=== PATIENT | female | born 1985 | race Caucasian/White ===

== ENCOUNTER 2017-03-29 12:35 | Emergency (ER) | payer MEDICAID ==
[~2017-03-29] VITALS: Ht 170.2 cm; Wt 65.8 kg
[~2017-03-29 12:35] MED LIST: AMOXIL250 MG PO; AMOXIL500 MG PO; DARVOCET-N 1001 EACH PO; FLEXERIL10 MG PO; KEFLEX 250MG.250 MG PO; KEFLEX 500MG.500 MG PO; NAPROXEN250 MG PO; TYLENOL W/CODEI1 TAB PO
--- NOTE | 2017-03-29 13:57 | Emergency Room Report ---
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 N Clinical Suspician of Infection? N Mental Status: 1 - Regular (Normal Baseline) Sepsis Risk:Possible Sepsis Risk Have you (or family members/close friends) recently traveled outside the [place]? N If Yes, where/when: Have you had exposure to infectious disease within the past month? N TB? Other? Specify: Comment The patient complains of a 2 day history of a cough productive of green sputum, substernal chest pain with cough, RIGHT earache, chills. She has also been wheezing. No history of asthma. She is a smoker. She works in a [employer]. She has a 4-month-old child. She does not want to spread the illness. ALLERGIES Coded Allergies: No Known Allergies (03/29/17) Home Medications Active Scripts CEPHALEXIN (Keflex 250MG Capsule) 250 MG PO TID #15 Prov: 12/17/07 Naproxen (Naproxen 250MG Tablet) 250 MG PO BID #10 Prov: 12/17/07 Cyclobenzaprine Hcl (Flexeril) 10 MG PO BID 5 Days Prov: 09/13/07 ACETAMINOPHEN WITH CODEINE (Tylenol With Codeine #3 Tablet) 1 TAB PO Q6H PRN 2 Days Prov: 09/13/07 CEPHALEXIN (Keflex 500MG Capsule) 500 MG PO Q8H 7 Days Prov: 07/07/08 Propoxyphene-N W/ Apap (Darvocet-N 100 Tab) 1 TAB PO Q6H PRN #12 Prov: 05/27/09 Amoxicillin Trihydrate (Amoxil 250MG Capsule) 250 MG PO TID #30 Prov: 10/15/07 ACETAMINOPHEN WITH CODEINE (Tylenol With Codeine #3 Tablet) 1 TAB PO Q6H PRN #12 Prov: 10/15/07 History Medical History General CAD? No Angina: No [place]: No Hypertension? No Hyperlipidemia? No COPD? No Asthma? No CVA? No Seizures? No Diabetes? No GB Disease: Yes MRSA? No TB? No Cancer? 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 Respiratory cough, shortness of breath, wheezing Cardiovascular chest pain Physical Exam Vital Signs Vital Signs Date Time Temp Pulse Resp B/P Pulse O2 O2 Flow FiO2 Ox Delivery Rate 03/29 1432 98.6 108 20 135/89 97 03/29 1242 98.4 112 20 154/100 97 General Appearance no apparent distress Eye Exam - bilateral eye normal exam, bilateral eye PERRL, bilateral eye EOMI Ear, Nose, Throat hearing grossly normal, normal ENT inspection, tympanic membranes unremarkable except for questionable minimal effusion RIGHT middle ear Neck normal inspection, non-tender, supple, full range of motion Respiratory Status Yes: trachea midline, chest symmetrical, non tender chest. No: respiratory distress. Lung Sounds bilateral: normal breath sounds, lungs clear. 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 No Results/Orders Current Medication Orders Sig/Angelique Start time Last Medication Dose Route Stop Time Status Admin Albuterol 0 .STK-MED ONE 03/29 1427 DC IH Miscellaneous 0 .STK-MED ONE 03/29 1426 DC XX Albuterol 2 PUFFS ONCE ONE 03/29 1415 DC IH 03/29 1416 Miscellaneous 1 UNIT ONCE ONE 03/29 1415 DC XX 03/29 1416 Albuterol/Ipratropium 3 ML ONCE ONE 03/29 1300 DC INH 03/29 1301 Albuterol/Ipratropium 0 .STK-MED ONE 03/29 1244 DC INH Orders Procedure Date/time Status RT REQUEST ALBUTEROL INHALER 03/29 1410 Active RT REQUEST DUONEB 03/29 1252 Active XRAY/CT/US XRAY/CT/US XRAY chest Comment Chest x-ray interpreted by Shemar Arriaga M.D. No infiltrate, pneumothorax, pleural effusion, or wide mediastinum. Progress - 2:15 PM: The patient feels much better after nebulizer treatment. Departure Departure Disposition DC Home or Self Care(routine) Clinical Impression Primary Impression: Acute bronchitis Qualifiers: Bronchitis organism: unspecified organism Qualified Code: J20.9 - Acute bronchitis, unspecified Secondary Impressions: Otalgia, right ear Condition STABLE Patient Instructions DI for Acute Bronchitis, DI for Otitis Media (Middle Ear Infection)-Child Additional Instructions Off work until Monday04/03/17. Use inhaler 2 puffs every 6 hours as needed for wheezing. Ibuprofen as needed for pain or fever. Additional instructions for ACUTE BRONCHITIS: Use Tylenol or Ibuprofen for pain or fever. Rest and plenty of fluids. Return immediately if you have an uncontrollable fever greater than 102 degrees, severe headache or neck stiffness, difficulty breathing or shortness of breath, persistent vomiting, severe sore throat or inability to swallow. See your physician if not improving in 4-5 days. Prescriptions Current Visit Scripts Benzonatate (Tessalon Perle) 100 MG PO TID #15 SGL Azithromycin (Zithromycin (Z-PILLO) 250MG Tab) 250 MG PO DAILY #6 TAB TAKE TWO (2) TABLETS ON DAY 1, THEN ONE (1) TABLET DAY #2 THRU #5 ED Critical Care Critical Care No at [id number]
--- NOTE | 2017-03-29 13:57 | Emergency Room Report ---
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 N Clinical Suspician of Infection? N Mental Status: 1 - Regular (Normal Baseline) Sepsis Risk:Possible Sepsis Risk Have you (or family members/close friends) recently traveled outside the [place]? N If Yes, where/when: Have you had exposure to infectious disease within the past month? N TB? Other? Specify: Comment The patient complains of a 2 day history of a cough productive of green sputum, substernal chest pain with cough, RIGHT earache, chills. She has also been wheezing. No history of asthma. She is a smoker. 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 She does not want to spread the illness. ALLERGIES Coded Allergies: No Known Allergies (03/29/17) Home Medications Active Scripts CEPHALEXIN (Keflex 250MG Capsule) 250 MG PO TID #15 Prov: 12/17/07 Naproxen (Naproxen 250MG Tablet) 250 MG PO BID #10 Prov: 12/17/07 Cyclobenzaprine Hcl (Flexeril) 10 MG PO BID 5 Days Prov: 09/13/07 ACETAMINOPHEN WITH CODEINE (Tylenol With Codeine #3 Tablet) 1 TAB PO Q6H PRN 2 Days Prov: 09/13/07 CEPHALEXIN (Keflex 500MG Capsule) 500 MG PO Q8H 7 Days Prov: 07/07/08 Propoxyphene-N W/ Apap (Darvocet-N 100 Tab) 1 TAB PO Q6H PRN #12 Prov: 05/27/09 Amoxicillin Trihydrate (Amoxil 250MG Capsule) 250 MG PO TID #30 Prov: 10/15/07 ACETAMINOPHEN WITH CODEINE (Tylenol With Codeine #3 Tablet) 1 TAB PO Q6H PRN #12 Prov: 10/15/07 History Medical History General CAD? No Angina: No [place]: No Hypertension? No Hyperlipidemia? No COPD? No Asthma? No CVA? No Seizures? No Diabetes? No GB Disease: Yes MRSA? No TB? No Cancer? 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 Respiratory cough, shortness of breath, wheezing Cardiovascular chest pain Physical Exam Vital Signs Vital Signs Date Time Temp Pulse Resp B/P Pulse O2 O2 Flow FiO2 Ox Delivery Rate 03/29 1432 98.6 108 20 135/89 97 03/29 1242 98.4 112 20 154/100 97 General Appearance no apparent distress Eye Exam - bilateral eye normal exam, bilateral eye PERRL, bilateral eye EOMI Ear, Nose, Throat hearing grossly normal, normal ENT inspection, tympanic membranes unremarkable except for questionable minimal effusion RIGHT middle ear Neck normal inspection, non-tender, supple, full range of motion Respiratory Status Yes: trachea midline, chest symmetrical, non tender chest. No: respiratory distress. Lung Sounds bilateral: normal breath sounds, lungs clear. 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 No Results/Orders Current Medication Orders Sig/Angelique Start time Last Medication Dose Route Stop Time Status Admin Albuterol 0 .STK-MED ONE 03/29 1427 DC IH Miscellaneous 0 .STK-MED ONE 03/29 1426 DC XX Albuterol 2 PUFFS ONCE ONE 03/29 1415 DC IH 03/29 1416 Miscellaneous 1 UNIT ONCE ONE 03/29 1415 DC XX 03/29 1416 Albuterol/Ipratropium 3 ML ONCE ONE 03/29 1300 DC INH 03/29 1301 Albuterol/Ipratropium 0 .STK-MED ONE 03/29 1244 DC INH Orders Procedure Date/time Status RT REQUEST ALBUTEROL INHALER 03/29 1410 Active RT REQUEST DUONEB 03/29 1252 Active XRAY/CT/US XRAY/CT/US XRAY chest Comment Chest x-ray interpreted by Shemar Arriaga M.D. No infiltrate, pneumothorax, pleural effusion, or wide mediastinum. Progress - 2:15 PM: The patient feels much better after nebulizer treatment. Departure Departure Disposition DC Home or Self Care(routine) Clinical Impression Primary Impression: Acute bronchitis Qualifiers: Bronchitis organism: unspecified organism Qualified Code: J20.9 - Acute bronchitis, unspecified Secondary Impressions: Otalgia, right ear Condition STABLE Patient Instructions DI for Acute Bronchitis, DI for Otitis Media (Middle Ear Infection)-Child Additional Instructions Off work until Monday04/03/17. Use inhaler 2 puffs every 6 hours as needed for wheezing. Ibuprofen as needed for pain or fever. Additional instructions for ACUTE BRONCHITIS: Use Tylenol or Ibuprofen for pain or fever. Rest and plenty of fluids. Return immediately if you have an uncontrollable fever greater than 102 degrees, severe headache or neck stiffness, difficulty breathing or shortness of breath, persistent vomiting, severe sore throat or inability to swallow. See your physician if not improving in 4-5 days. Prescriptions Current Visit Scripts Benzonatate (Tessalon Perle) 100 MG PO TID #15 SGL Azithromycin (Zithromycin (Z-PILLO) 250MG Tab) 250 MG PO DAILY #6 TAB TAKE TWO (2) TABLETS ON DAY 1, THEN ONE (1) TABLET DAY #2 THRU #5 ED Critical Care Critical Care No at [id number]
[2017-03-29] MEDS ORDERED: ZITHROMAX Z PA250 MG PO (14:13)
[2017-03-29] MEDS ORDERED: TESSALON PERLE100 M1 PO (14:13)
--- NOTE | 2017-03-29 14:21 | RADIOLOGY REPORT PS360 ---
CHEST(2 VIEWS-NOT PORTABLE) HISTORY: PROD COUGH ORDERING PHYSICIAN: Shemar Arriaga MD PATIENT AGE: 31 years COMPARISON: 10/15/2007 FINDINGS: The cardiomediastinal silhouette and pulmonary vascularity are within normal limits. The lungs are clear without infiltrates, suspicious nodules, or pleural effusions. No acute bony abnormalities. IMPRESSION: Negative chest, no acute finding
[2017-03-29 14:32] VITALS: BP 135/89
== END 2017-03-29 14:32 | disposition home or self-care (01) ==
LOC: ER 12:35
DX: J20.9 Acute bronchitis, unspecified (principal); H92.01 Otalgia, right ear; F17.210 Nicotine dependence, cigarettes, uncomplicated